=== PATIENT | female | born 1950 | race African-American/Black ===

== ENCOUNTER 2025-03-24 10:32 | Inpatient (IN) | payer OTHER, MEDICAID, MEDICARE ==
[~2025-03-24] VITALS: Ht 165.1 cm; Wt 46.3 kg
[2025-03-24 10:36] VITALS: O2SAT 99
[2025-03-24 11:00] LABS: BASOPHILS % 0.8 % (0.0-2.0); EOSINOPHILS % 0.1 % (0.0-5.0); HEMATOCRIT. 38.8 % (36.0-48.0); HEMOGLOBIN. 12.5 g/dL (12.0-16.0); LYMPHOCYTES % 12.7 % (20.0-50.0); MEAN PLATELET VOLUME 8.2 fl (7.4-10.4); MONOCYTES % 6.4 % (2.0-8.0); NEUTROPHILS % 80.0 % (40.0-76.0); PLATELET 339 x1000/uL (130-400); RED BLOOD CELL COUNT 4.73 mill/uL (4.2-5.4); RED CELL DISTRIBUTION WIDTH 15.3 % (11.6-14.6)
[2025-03-24 11:14] LABS: CREATININE 1.1 mg/dL (0.6-1.0)
[2025-03-24 11:15] LABS: UREA NITROGEN BLOOD 13 mg/dL (9-23)
[2025-03-24 11:16] LABS: ASPARTATE AMINOTRANSFERASE 20 IU/L (<34)
[2025-03-24 11:17] LABS: BILIRUBIN DIRECT 0.1 mg/dL (<=3.0); BILIRUBIN TOTAL 0.5 mg/dL (0.1-1.0); PROTEIN TOTAL 7.5 g/dL (6.0-8.3)
[2025-03-24 11:30] LABS: INR 1.0
[2025-03-24] MEDS: SODIUM CHLORIDE 0.9% 1,000 ML IV ONE (13:06)
[2025-03-24 13:30] VITALS: BP 145/61; PULSE 61; RESP 18; TEMP 36.5292
[2025-03-24] MEDS ORDERED: ONDANSETRON HCL 4MG/2ML INJ IV PRN (13:30)
[2025-03-24] MEDS ORDERED: IPRATROPIUM/ALBUTEROL 0.5-3(2.5)MG/3ML NEB HHN PRN (13:30)
[2025-03-24 13:32] VITALS: BP 145/61; PULSE 61; RESP 18; TEMP 36.5; O2SAT 100
[2025-03-24 16:00] VITALS: BP 159/73; PULSE 72; RESP 18; TEMP 36.2; O2SAT 100
[2025-03-24] MEDS ORDERED: DEXTROSE 50% WATER 50ML SYRINGE IV PRN (18:30)
[2025-03-24] MEDS: PANTOPRAZOLE SODIUM 40 MG/VIAL IV SCH (18:52)
[2025-03-24 19:02] LABS: PHOSPHORUS 2.8 mg/dL (2.5-4.9)
[2025-03-24 20:00] VITALS: BP 162/77; PULSE 74; RESP 20; TEMP 37.2; O2SAT 100
[2025-03-24] MEDS: INSULIN LISPRO 100 UNITS/ML SUBCUT SCH (21:00)
[2025-03-24] MEDS: BLOOD SUGAR DIAGNOSTIC STRIP TEST SCH (21:00)
[2025-03-24] MEDS: SODIUM CHLORIDE 0.9% 1,000 ML IV SCH (22:46)
[2025-03-25] VITALS (8 sets, daily range): BP systolic 117–156; BP diastolic 50–74; PULSE 68–84; RESP 20; TEMP 36.4–37.1; O2SAT 95–100
[2025-03-25 01:05] LABS: CLARITY URINE CLEAR (CLEAR); COLOR URINE YELLOW (YELLOW); GLUCOSE URINE NEGATIVE (NEGATIVE); KETONES URINE 1+ (NEGATIVE); LEUKOCYTE ESTERASE URINE TRACE (NEGATIVE); NITRITE URINE NEGATIVE (NEGATIVE); OCCULT BLOOD URINE NEGATIVE (NEGATIVE); PH URINE 5.5 (4.5-8.0); PROTEIN URINE 2+ (NEGATIVE); SPECIFIC GRAVITY URINE 1.018 (1.005-1.030); UROBILINOGEN URINE 0.2 E.U./dL (0.2-1.0)
[2025-03-25 01:18] LABS: *AMPHETAMINES SCREEN URINE NEGATIVE (NEGATIVE); *BARBITURATES SCREEN URINE NEGATIVE (NEGATIVE); *BENZODIAZEPINES SCREEN URINE NEGATIVE (NEGATIVE); *COCAINE SCREEN URINE NEGATIVE (NEGATIVE); CANNABINOID URINE SCREEN NEGATIVE (NEGATIVE); ECSTASY MDMA SCREEN URINE NEGATIVE (NEGATIVE); METHADONE URINE SCREEN NEGATIVE (NEGATIVE); OPIATES URINE SCREEN NEGATIVE (NEGATIVE); PHENCYCLIDINE URINE SCREEN NEGATIVE (NEGATIVE)
[2025-03-25 01:29] LABS: RBC URINE 0-2 /hpf (0-2)
[2025-03-25 01:32] LABS: BACTERIA URINE TRACE; SQUAMOUS EPITHELIAL CELL URINE FEW /lpf (RARE/1+)
[2025-03-25] MEDS ORDERED: DEXTROSE 50% WATER 50ML SYRINGE IV PRN (06:15)
[2025-03-25 07:50] LABS: BASOPHILS % 0.6 % (0.0-2.0); EOSINOPHILS % 0.9 % (0.0-5.0); HEMATOCRIT. 35.5 % (36.0-48.0); HEMOGLOBIN. 11.7 g/dL (12.0-16.0); LYMPHOCYTES % 11.9 % (20.0-50.0); MEAN PLATELET VOLUME 9.4 fl (7.4-10.4); MONOCYTES % 6.6 % (2.0-8.0); NEUTROPHILS % 80.0 % (40.0-76.0); PLATELET 270 x1000/uL (130-400); RED BLOOD CELL COUNT 4.39 mill/uL (4.2-5.4); RED CELL DISTRIBUTION WIDTH 15.2 % (11.6-14.6)
[2025-03-25 07:56] LABS: CREATININE 0.8 mg/dL (0.6-1.0); UREA NITROGEN BLOOD 12 mg/dL (9-23)
[2025-03-25] MEDS ORDERED: ATOR40TA70 PO (16:10)
[2025-03-25] MEDS ORDERED: AMLO10TA80 PO (16:10)
[2025-03-25] MEDS ORDERED: LISI40TA21 PO (16:10)
[2025-03-25] MEDS: HEMORRHOIDAL SUPP PR SCH (16:53)
[2025-03-25] MEDS: AMLODIPINE 10MG TABLET PO SCH (18:04)
[2025-03-26] MEDS ORDERED: ATORVASTATIN CALCIUM 40MG TABLET PO SCH (09:00)
[2025-03-26] MEDS ORDERED: LISINOPRIL 40MG TABLET PO SCH (09:00)
== END 2025-03-25 21:40 | disposition short-term general hospital (02) | DRG 393 ==
LOC: ER 10:32 → 7WST 12:40 → EDBEDREQ 12:44 → EDBEDREQTM 12:44
PROVIDERS: ADMIT Internal Medicine; ATTEND Internal Medicine
DX: K64.9 Unspecified hemorrhoids (principal); K57.91 Diverticulosis of intestine, part unspecified, without perforation or abscess with bleeding; N17.9 Acute kidney failure, unspecified; E86.0 Dehydration; N18.9 Chronic kidney disease, unspecified; I12.9 Hypertensive chronic kidney disease with stage 1 through stage 4 chronic kidney disease, or unspecified chronic kidney disease; F31.9 Bipolar disorder, unspecified; D64.9 Anemia, unspecified; E11.22 Type 2 diabetes mellitus with diabetic chronic kidney disease; J44.9 Chronic obstructive pulmonary disease, unspecified; F17.210 Nicotine dependence, cigarettes, uncomplicated; Z79.82 Long term (current) use of aspirin; Z88.5 Allergy status to narcotic agent; Z88.6 Allergy status to analgesic agent; Z90.710 Acquired absence of both cervix and uterus; Z83.3 Family history of diabetes mellitus; Z82.49 Family history of ischemic heart disease and other diseases of the circulatory system
CPT/HCPCS: 36415; 80048; 80076; 80305; 81003; 82962; 83036; 83605; 83735; 84100; 85014; 85018; 85025; 86850; 86900; 99285; J1815; J2470; J7030